=== PATIENT | male | born 1960 | race Caucasian/White ===

== ENCOUNTER 2016-06-22 12:14 | Inpatient (IN) | payer OTHER, MEDICAID ==
[~2016-06-22] VITALS: Ht 170.2 cm; Wt 69.4 kg
[~2016-06-22 12:14] MED LIST: OLAN10TA3 PO; QUET200T PO; SINE25100 PO
[2016-06-22] MEDS ORDERED: HydrOXYzine PAMOATE 50 MG CAPSULE PO PRN (16:45)
[2016-06-22] MEDS ORDERED: TUBERCULIN, PURIFIED PROTEIN DERIVATIVE 5 TU/0.1 ML SYG ID ONE (16:45)
[2016-06-22] MEDS ORDERED: GuaiFENesin/D-METHORPHAN [SUGAR-FREE] 200-20MG/10 ML SYRUP UDCUP PO PRN (16:45)
[2016-06-22] MEDS ORDERED: OLANZapine 5 MG RAPDIS TABLET PO PRN (16:45)
[2016-06-22] MEDS ORDERED: LOPERAMIDE HCL 2 MG CAPSULE PO PRN (16:45)
[2016-06-22] MEDS ORDERED: ACETAMINOPHEN 325 MG TABLET PO PRN (16:45)
[2016-06-22] MEDS ORDERED: PROMETHAZINE HCL 25 MG TABLET PO PRN (16:45)
[2016-06-22] MEDS ORDERED: MAG HYDROX/AL HYDROX/SIMETH ES 30 ML SUSPENSION UDCUP PO PRN (16:45)
[2016-06-22] MEDS ORDERED: MAGNESIUM HYDROXIDE SUSPENSION 30 ML UDCUP PO PRN (16:45)
[2016-06-22 16:57] VITALS: BP 113/73
[2016-06-22] MEDS: THIAMINE HCL 100 MG TABLET PO SCH (17:32)
[2016-06-22] MEDS: ZOLPIDEM TARTRATE 10 MG TABLET PO PRN (23:40)
[2016-06-23] VITALS (10 sets, daily range): BP systolic 104–127; BP diastolic 77–80
[2016-06-23 07:55] LABS: BASOPHILS % (AUTO) 0.3 % (0.0-2.0); EOSINOPHILS % (AUTO) 3.9 % (1.0-6.0); HEMATOCRIT 39.7 % (41-53); HEMOGLOBIN 13.3 g/dL (13.5-17.5); LYMPHOCYTES # (AUTO) 2.4 K/uL (1.0-4.8); LYMPHOCYTES % (AUTO) 25.4 % (22.0-44.0); MEAN CORPUSCULAR HEMOGLOBIN 29.7 pg (26.0-34.0); MEAN CORPUSCULAR HGB CONC 33.6 G/dL (31.0-37.0); MEAN CORPUSCULAR VOLUME 88 fL (80-100); MONOCYTES # (AUTO) 0.7 K/uL (0.1-1.0); MONOCYTES % (AUTO) 7.9 % (2.0-9.0); NEUTROPHILS # (AUTO) 5.8 K/uL (1.8-7.7); NEUTROPHILS % (AUTO) 62.5 % (40.0-70.0); PLATELET COUNT (AUTO) 231 K/uL (150-450); RED BLOOD CELL COUNT(AUTO) 4.49 MIL/uL (4.50-5.90); WHITE BLOOD COUNT (AUTO) 9.3 K/uL (4.5-11.0)
[2016-06-23 08:35] LABS: ALANINE AMINOTRANSFERASE 18 U/L (12-78); ANION GAP 5 mmol/L (8-16); ASPARTATE AMINOTRANSFERASE 15 U/L (15-37); BILIRUBIN,TOTAL 0.5 mg/dL (0.1-1.0); CALCIUM, TOTAL 8.7 mg/dL (8.8-10.5); CARBON DIOXIDE 31 mmol/L (22-29); CHLORIDE 105 mmol/L (98-107); CHOL/HDL RATIO 2.2 (4.2-7.3); CREATININE 0.91 mg/dL (0.60-1.30); GLOMERULAR FILTR. RATE CALC > 60 mL/min (>60); POTASSIUM 3.9 mmol/L (3.5-5.1); SODIUM SERUM 141 mmol/L (136-145); THYROID STIMULATING HORMONE 2.94 uIU/mL (0.36-3.74); TOTAL PROTEIN, SERUM 6.7 g/dL (6.4-8.2); UREA NITROGEN, BLOOD 10 mg/dL (7-18)
[2016-06-23] MEDS ORDERED: CloZAPine 25 MG TABLET PO SCH (09:00)
[2016-06-23] MEDS: THIAMINE HCL 100 MG TABLET PO SCH ×2 (09:39→16:38)
[2016-06-23] MEDS: MULTIVITAMINS WITH MINERALS, THERAPEUTIC TABLET PO SCH (09:39)
[2016-06-23] MEDS: FOLIC ACID 1 MG TABLET PO SCH (09:40)
[2016-06-23] MEDS: CARBIDOPA/LEVODOPA 25-100 MG TABLET PO SCH ×3 (09:40→16:38)
[2016-06-23 09:50] LABS: HEMOGLOBIN A1C 5.8 % (4.5-6.2)
[2016-06-23] MEDS: LORazepam 2 MG TABLET PO PRN ×2 (16:43→22:34)
[2016-06-23] MEDS: ZOLPIDEM TARTRATE 10 MG TABLET PO PRN (20:53)
[2016-06-24] VITALS: BP 125/81
[2016-06-24 02:41] VITALS: BP 125/81
[2016-06-24] MEDS ORDERED: CloZAPine 25 MG TABLET PO SCH ×2 (09:00→21:00)
[2016-06-24 09:15] VITALS: BP 115/76
[2016-06-24] MEDS: FOLIC ACID 1 MG TABLET PO SCH (09:17)
[2016-06-24] MEDS: CARBIDOPA/LEVODOPA 25-100 MG TABLET PO SCH ×3 (09:17→16:34)
[2016-06-24] MEDS: MULTIVITAMINS WITH MINERALS, THERAPEUTIC TABLET PO SCH (09:17)
[2016-06-24] MEDS: THIAMINE HCL 100 MG TABLET PO SCH ×2 (09:17→16:34)
[2016-06-24 16:26] VITALS: BP 111/79
[2016-06-24] MEDS: LORazepam 2 MG TABLET PO PRN (20:09)
[2016-06-24] MEDS: ZOLPIDEM TARTRATE 10 MG TABLET PO PRN (22:58)
[2016-06-25 06:02] VITALS: BP 117/63
[2016-06-25] MEDS: MULTIVITAMINS WITH MINERALS, THERAPEUTIC TABLET PO SCH (08:13)
[2016-06-25] MEDS: CARBIDOPA/LEVODOPA 25-100 MG TABLET PO SCH ×3 (08:13→16:40)
[2016-06-25] MEDS: FOLIC ACID 1 MG TABLET PO SCH (08:13)
[2016-06-25] MEDS: THIAMINE HCL 100 MG TABLET PO SCH ×2 (08:13→16:40)
[2016-06-25 08:19] VITALS: BP 125/77
[2016-06-25] MEDS ORDERED: CloZAPine 25 MG TABLET PO SCH ×2 (09:00→21:00)
[2016-06-25 09:07] VITALS: BP 125/77
[2016-06-25 18:09] VITALS: BP 126/84
[2016-06-25] MEDS: LORazepam 2 MG TABLET PO PRN (20:06)
[2016-06-25] MEDS: ZOLPIDEM TARTRATE 10 MG TABLET PO PRN (22:07)
[2016-06-26] VITALS (10 sets, daily range): BP systolic 100–126; BP diastolic 61–89
[2016-06-26] MEDS: CARBIDOPA/LEVODOPA 25-100 MG TABLET PO SCH ×3 (09:22→16:36)
[2016-06-26] MEDS: CloZAPine 25 MG TABLET PO SCH ×2 (09:22→20:34)
[2016-06-26] MEDS: THIAMINE HCL 100 MG TABLET PO SCH ×2 (09:22→16:36)
[2016-06-26] MEDS: FOLIC ACID 1 MG TABLET PO SCH (09:22)
[2016-06-26] MEDS: MULTIVITAMINS WITH MINERALS, THERAPEUTIC TABLET PO SCH (09:22)
[2016-06-26] MEDS: LORazepam 2 MG TABLET PO PRN (12:38)
[2016-06-26] MEDS: ZOLPIDEM TARTRATE 10 MG TABLET PO PRN (23:39)
[2016-06-27 07:08] VITALS: BP 116/86
[2016-06-27 08:21] VITALS: BP 119/77
[2016-06-27] MEDS: CARBIDOPA/LEVODOPA 25-100 MG TABLET PO SCH ×3 (09:29→17:06)
[2016-06-27] MEDS: MULTIVITAMINS WITH MINERALS, THERAPEUTIC TABLET PO SCH (09:29)
[2016-06-27] MEDS: THIAMINE HCL 100 MG TABLET PO SCH ×2 (09:29→17:06)
[2016-06-27] MEDS: CloZAPine 25 MG TABLET PO SCH ×2 (09:29→20:16)
[2016-06-27] MEDS: FOLIC ACID 1 MG TABLET PO SCH (09:29)
[2016-06-27 10:07] VITALS: BP 119/79
[2016-06-27 16:14] VITALS: BP 121/68
[2016-06-27] MEDS: ZOLPIDEM TARTRATE 10 MG TABLET PO PRN (22:33)
[2016-06-28 00:10] VITALS: BP 120/68
[2016-06-28 01:45] VITALS: BP 120/68
[2016-06-28] MEDS: LORazepam 2 MG TABLET PO PRN (01:48)
[2016-06-28 07:40] VITALS: BP 121/75
[2016-06-28 08:03] VITALS: BP 121/75
[2016-06-28] MEDS: THIAMINE HCL 100 MG TABLET PO SCH ×2 (08:59→17:16)
[2016-06-28] MEDS: FOLIC ACID 1 MG TABLET PO SCH (08:59)
[2016-06-28] MEDS: MULTIVITAMINS WITH MINERALS, THERAPEUTIC TABLET PO SCH (08:59)
[2016-06-28] MEDS: CARBIDOPA/LEVODOPA 25-100 MG TABLET PO SCH ×3 (09:00→17:16)
[2016-06-28] MEDS ORDERED: CloZAPine 25 MG TABLET PO SCH (09:00)
[2016-06-28 16:31] VITALS: BP 111/79
[2016-06-28] MEDS ORDERED: CloZAPine 100 MG TABLET PO SCH (21:00)
[2016-06-28] MEDS: ZOLPIDEM TARTRATE 10 MG TABLET PO PRN (21:00)
[2016-06-29 03:41] VITALS: BP 135/80
[2016-06-29 03:43] VITALS: BP 135/80
[2016-06-29 08:41] VITALS: BP 121/75
[2016-06-29] MEDS: FOLIC ACID 1 MG TABLET PO SCH (08:58)
[2016-06-29] MEDS: CARBIDOPA/LEVODOPA 25-100 MG TABLET PO SCH ×3 (08:58→16:09)
[2016-06-29] MEDS: MULTIVITAMINS WITH MINERALS, THERAPEUTIC TABLET PO SCH (08:58)
[2016-06-29] MEDS: THIAMINE HCL 100 MG TABLET PO SCH ×2 (08:58→16:09)
[2016-06-29] MEDS ORDERED: CloZAPine 25 MG TABLET PO SCH (09:00)
[2016-06-29] MEDS: LORazepam 2 MG TABLET PO PRN (14:04)
[2016-06-29 16:08] VITALS: BP 106/68
[2016-06-29 16:29] VITALS: BP 106/68
[2016-06-29] MEDS ORDERED: CloZAPine 100 MG TABLET PO SCH (21:00)
[2016-06-29] MEDS: ZOLPIDEM TARTRATE 10 MG TABLET PO PRN (22:38)
[2016-06-30 06:13] VITALS: BP 108/60
[2016-06-30 08:13] VITALS: BP 126/82
[2016-06-30] MEDS ORDERED: CloZAPine 25 MG TABLET PO SCH (09:00)
[2016-06-30 09:01] LABS: BASOPHILS # (AUTO) 0.02 K/uL (0.00-0.20); BASOPHILS % (AUTO) 0.3 % (0.0-2.0); EOSINOPHILS # (AUTO) 0.35 K/uL (0.00-0.70); EOSINOPHILS % (AUTO) 5.22 % (1.0-6.0); HEMATOCRIT 42.9 % (41-53); HEMOGLOBIN 14.6 g/dL (13.5-17.5); LYMPHOCYTES # (AUTO) 2.5 K/uL (1.0-4.8); LYMPHOCYTES % (AUTO) 37.6 % (22.0-44.0); MEAN CORPUSCULAR HEMOGLOBIN 29.4 pg (26.0-34.0); MEAN CORPUSCULAR HGB CONC 33.9 G/dL (31.0-37.0); MEAN CORPUSCULAR VOLUME 87 fL (80-100); MONOCYTES # (AUTO) 0.7 K/uL (0.1-1.0); MONOCYTES % (AUTO) 10.7 % (2.0-9.0); NEUTROPHILS # (AUTO) 3.1 K/uL (1.8-7.7); NEUTROPHILS % (AUTO) 46.3 % (40.0-70.0); PLATELET COUNT (AUTO) 267 K/uL (150-450); RED BLOOD CELL COUNT(AUTO) 4.96 MIL/uL (4.50-5.90); RED CELL DISTRIBUTION WIDTH 13.8 % (11.5-14.5); WHITE BLOOD COUNT (AUTO) 6.7 K/uL (4.5-11.0)
[2016-06-30] MEDS: THIAMINE HCL 100 MG TABLET PO SCH ×2 (09:06→16:48)
[2016-06-30] MEDS: CARBIDOPA/LEVODOPA 25-100 MG TABLET PO SCH ×3 (09:06→16:48)
[2016-06-30] MEDS: FOLIC ACID 1 MG TABLET PO SCH (09:06)
[2016-06-30] MEDS: MULTIVITAMINS WITH MINERALS, THERAPEUTIC TABLET PO SCH (09:06)
[2016-06-30 16:37] VITALS: BP 117/71
[2016-06-30] MEDS: LORazepam 2 MG TABLET PO PRN (16:56)
[2016-06-30] MEDS ORDERED: CloZAPine 100 MG TABLET PO SCH (21:00)
[2016-06-30] MEDS: ZOLPIDEM TARTRATE 10 MG TABLET PO PRN (21:16)
[2016-07-01 06:31] VITALS: BP 123/74
[2016-07-01 08:00] VITALS: BP 119/68
[2016-07-01] MEDS: THIAMINE HCL 100 MG TABLET PO SCH ×2 (09:03→18:34)
[2016-07-01] MEDS: CloZAPine 100 MG TABLET PO SCH ×2 (09:03→21:27)
[2016-07-01] MEDS: CARBIDOPA/LEVODOPA 25-100 MG TABLET PO SCH ×3 (09:03→18:33)
[2016-07-01] MEDS: FOLIC ACID 1 MG TABLET PO SCH (09:03)
[2016-07-01] MEDS: MULTIVITAMINS WITH MINERALS, THERAPEUTIC TABLET PO SCH (09:03)
[2016-07-01 16:15] VITALS: BP 110/72
[2016-07-01] MEDS: LORazepam 2 MG TABLET PO PRN (18:33)
[2016-07-01] MEDS: ZOLPIDEM TARTRATE 10 MG TABLET PO PRN (21:27)
[2016-07-02 00:15] VITALS: BP 113/62
[2016-07-02 08:48] VITALS: BP 111/60
[2016-07-02] MEDS: CARBIDOPA/LEVODOPA 25-100 MG TABLET PO SCH ×3 (09:29→16:27)
[2016-07-02] MEDS: THIAMINE HCL 100 MG TABLET PO SCH (09:29)
[2016-07-02] MEDS: CloZAPine 100 MG TABLET PO SCH ×2 (09:29→20:57)
[2016-07-02] MEDS: FOLIC ACID 1 MG TABLET PO SCH (09:29)
[2016-07-02] MEDS: MULTIVITAMINS WITH MINERALS, THERAPEUTIC TABLET PO SCH (09:29)
[2016-07-02] MEDS ORDERED: CLOZ100 PO (13:10)
[2016-07-02 16:04] LABS: CLOZAPINE 151 ng/mL (350-650); CLOZAPINE & NORCLOZAPINE 205 ng/mL; NORCLOZAPINE 54 ng/mL (Not Estab.)
[2016-07-02 16:12] VITALS: BP 126/82
[2016-07-02] MEDS: LORazepam 2 MG TABLET PO PRN (16:27)
[2016-07-02] MEDS: ZOLPIDEM TARTRATE 10 MG TABLET PO PRN (20:57)
[2016-07-03 07:14] VITALS: BP 120/77
[2016-07-03] MEDS: CARBIDOPA/LEVODOPA 25-100 MG TABLET PO SCH ×2 (08:54→13:02)
[2016-07-03] MEDS: MULTIVITAMINS WITH MINERALS, THERAPEUTIC TABLET PO SCH (08:54)
[2016-07-03] MEDS ORDERED: CloZAPine 25 MG TABLET PO SCH (09:00)
[2016-07-03 10:01] VITALS: BP 119/77
[2016-07-03] MEDS ORDERED: CLOZ100 PO (12:36)
[2016-07-03] MEDS ORDERED: CloZAPine 100 MG TABLET PO SCH (21:00)
[2016-07-04] MEDS ORDERED: CloZAPine 25 MG TABLET PO SCH (09:00)
[2016-07-04] MEDS ORDERED: CloZAPine 100 MG TABLET PO SCH (21:00)
[2016-07-05] MEDS ORDERED: CloZAPine 100 MG TABLET PO SCH ×2 (09:00→21:00)
== END 2016-07-03 14:35 | disposition home or self-care (01) | DRG 885 ==
LOC: B2S 16:33 → EDSTATUS 16:36 → B2X 23:43 → B2S 06-26 22:36
PROVIDERS: ADMIT Psychiatry & Neurology Psychiatry; ATTEND Psychiatry & Neurology Psychiatry
PROC: GZ51ZZZ Individual Psychotherapy, Behavioral (ICD-10-PCS; principal; 2016-06-23)
DX: F25.0 Schizoaffective disorder, bipolar type (principal); R45.851 Suicidal ideations; E78.5 Hyperlipidemia, unspecified; G20 Parkinson's disease; G47.00 Insomnia, unspecified; J44.9 Chronic obstructive pulmonary disease, unspecified; K21.9 Gastro-esophageal reflux disease without esophagitis; K59.00 Constipation, unspecified; F17.210 Nicotine dependence, cigarettes, uncomplicated; F32.9 Major depressive disorder, single episode, unspecified; D64.9 Anemia, unspecified; Z71.6 Tobacco abuse counseling; Z91.19 Patient's noncompliance with other medical treatment and regimen; Z79.899 Other long term (current) drug therapy
CPT/HCPCS: 80159; 83036; 84439; 84443; 86592; 87081; 93005